=== PATIENT | male | born 2000 | race Caucasian/White ===

== ENCOUNTER 2023-06-28 17:41 | Emergency (ER) | payer BC, SELFPAY ==
--- NOTE | ~2023-06-28 | CT_ITS ---
EXAMINATION: CT HEAD AND FACIAL BONES WITHOUT CONTRAST CLINICAL INFORMATION: Fall head injury COMPARISON: None TECHNIQUE: Contiguous axial imaging was performed from the skull base to vertex without intravenous administration of contrast. This CT examination was performed using dose optimization techniques as appropriate, variously including the following: *Automated exposure control *Adjustment of mA and/or kV according to patient size (this includes techniques or standardized protocols for targeted exams where dose is matched to indication/reason for exam; i.e. extremities or head) *Use of iterative reconstruction technique DLP: 1446 mGy-cm FINDINGS: There is no evidence of acute intracranial hemorrhage or territorial infarction. No abnormal mass effect or midline shift is seen. Yang to white matter differentiation is well preserved. No extra-axial fluid collections are identified. The ventricles are normal in size. There is no abnormal attenuation within the brain parenchyma. Slight soft tissue swelling overlying the right frontal sinus without underlying bony defect. The osseous structures and soft tissues are normal. The mastoid air cells and visualized portions of the paranasal sinuses are well aerated. CT/CT cervical spine wo IV con IMPRESSION: 1. No acute intracranial pathology. 2. No acute visible fracture or dislocation. 3. Slight soft tissue swelling overlying the right frontal sinus without underlying bony defect. EXAMINATION: Noncontrast CT scan of the cervical spine. INDICATION: Neck pain COMPARISON: None. TECHNIQUE: Helical, multidetector axial images were obtained from the occiput to the upper thorax. Coronal and sagittal reformats of the cervical spine were provided for interpretation. DLP: 1446 mGy-cm FINDINGS: No acute fractures or dislocations of the cervical spine are seen. Straightening of normal cervical curvature which may be secondary to patient positioning versus muscle spasm. Anatomic alignment and positioning of the vertebral bodies and posterior elements is noted. The atlantoaxial joint and craniovertebral articulations are normal without evidence of subluxation. There is no prevertebral soft tissue swelling. The thyroid gland and visualized portions of the lung apices and mediastinum are unremarkable. IMPRESSION: 1. No acute visible fracture or dislocation. 2. Straightening of normal cervical curvature which may be secondary to patient positioning versus muscle spasm.
[2023-06-28 17:44] VITALS: BP 138/75; PULSE 88; RESP 16; TEMP 36.9; O2SAT 100; BMI 25.4
--- NOTE | 2023-06-28 17:45 | ED_ITS ---
HPI - General Adult General Chief complaint: Head Injury Stated complaint: Fall, head inj Time Seen by Provider: 06/28/23 20:57 Source: patient Mode of arrival: ambulatory Limitations: no limitations History of Present Illness HPI narrative: Patient is a 22-year-old male who presents emergency department for evaluation after head injury. He reports last night he was walking, when he tripped on the curb, subsequently falling forward and striking his face onto the pavement. His friend who is present at bedside states that there was no loss of consciousness when this happened. He has multiple abrasions to the right side of his face and forehead, last night he had a nosebleed from the right side which has since stopped. He is unaware of the date of his last tetanus vaccination. He denies pain at this time, headache, dizziness, neck pain, chest pain, shortness of breath, nausea, vomiting, numbness or tingling of the extremities. Related Data Allergies Allergy/AdvReac Type Severity Reaction Status Date / Time Unable to Assess Allergy Unverified 06/28/23 17:42 Review of Systems Review of Systems: Yes all other systems are reviewed and are negative [facility] Past Medical History Attestation statement: The following information was validated with the patient. Source: old records reviewed Social History Social History Advance Directives: No Advance Directives Information Provided: No Physical Exam ED Vital Signs: Vital Signs - 24 hr 06/28/23 17:44 Temperature 98.4 F Pulse Rate 88 Respiratory Rate 16 Blood Pressure 138/75 Pulse Oximetry 100 Oxygen Delivery Method Room Air BMI result Body Mass Index 25.4 Appearance: Alert.?Oriented to person, place and time. No acute distress.?Normal affect. Head: Normocephalic atraumatic Eyes: Pupils equal, round and reactive to light.? EOMI. No nystagmus. No raccoon eyes. ENT: Pharynx normal.??TM normal bilaterally. No Hill sign. No septal hematoma. No epistaxis. Neck: Normal inspection.? Neck supple.?? CVS: Heart sounds normal. Normal heart rate and rhythm.? Pulses normal.?? Respiratory: No respiratory distress.? Lung sounds clear to auscultation bilaterally?? Abdomen: Soft and non-tender. Normoactive bowel sounds. Skin: Skin warm and dry.? Normal skin color.? Extremities: No lower extremity edema.? Full AROM to bilateral upper and lower extremities Neuro: Moves all extremities spontaneously. Sensation intact bilaterally. CN II- XII intact. No focal neuro deficits. Ambulates with normal steady gait. Course Course Course Narrative: This is an RME: Additional HPI, ROS, PE not included below will be deferred to primary provider. 22 yo m presents s/p trip and fall and hit his face on the pavement unclear loc this happened last night after fall also had a nose bleed. Reports ttp to forehead and right side of face. Plan- imaging, boostrix Medications Administered Discontinued Medications Generic Name Dose Route Start Last Admin Trade Name Freq PRN Reason Stop Dose Admin Diphtheria/Tetanus/Acell Pertussis 0.5 ml 06/28/23 17:46 06/28/23 20:49 Diphth,Pertus(Acell),Tet Adult 0.5 Ml Syringe IM 06/28/23 17:47 0.5 ml .ONCE ONE Administration Medical Decision Making Medical Decision Making MDM Narrative: Patient is a 22-year-old male presents emergency department for evaluation after a mechanical trip and fall without any precipitating symptomswith head strike and no loss of consciousness occurring yesterday night. I reviewed CT imaging of the head cervical spine and facial bones obtained prior to my assumption of care, there without acute abnormality. No signs of ICH, SDH, fracture, traumatic subluxation. He has no reports of eye pain, vision changes, EOMI, no signs of entrapment. Abrasions are superficial, none of which requiring suture repair. There were cleansed with saline, bacitracin was applied. Tdap was updated today. Discussed with patient return precautions including signs and symptoms of concussion to monitor for. At this time he is stable for discharge. Discussed the use of acetaminophen/ibuprofen as needed for pain, and outpatient follow-up with primary care provider. Differential Diagnosis Differential Diagnoses: The differential diagnosis associated with the presentation includes Independent Interpretation I performed an independent interpretation of an: CT Scan Radiology Impression Discussion of test interpretation with radiology: I have reviewed the radiologist's reading. Radiologist Impression: CT/CT head/brain wo IV con IMPRESSION: 1. No acute intracranial pathology. 2. No acute visible fracture or dislocation. 3. Slight soft tissue swelling overlying the right frontal sinus without underlying bony defect. Independent Historian Clinical information obtained from an independent historian. History obtained from or confirmed by: Friend (Present at bedside who confirms history) Prescription Management I considered prescription management with: Pain Medication (Acetaminophen/ibuprofen) Discharge Plan Discharge Clinical Impression: Acute head injury without loss of consciousness Patient Disposition: Home, Self-Care Instructions: Concussion (ED), Head Injury (ED) Additional Instructions: As discussed, your CT imaging today was normal. You can take ibuprofen 200 mg, 3 tablets (600mg) every 6-8 hours as needed for pain, in addition to Tylenol 500 mg, 2 tablets (1,000mg) every 4-6 hours as needed for pain, but not to exceed 3 doses daily (3,000mg).? Follow-up with your primary care provider as needed. Return back to emergency department any new or worsening symptoms or concerns. Referrals: ED Physician,Generic [Physician] - Interventions: ED Discharge Assessment Last Done: 06/28/23 22:44 Discharge Date/Time: 06/28/23 22:46
[2023-06-28] MEDS: Diphth,Pertus(ACell),Tet Adult 0.5 ML SYRINGE IM (20:49)
== END 2023-06-28 22:46 | disposition home or self-care (01) ==
PROVIDERS: Emergency Provider Internal Medicine
DX: S09.90XA Unspecified injury of head, initial encounter (principal); S00.91XA Abrasion of unspecified part of head, initial encounter; R51.9 Headache, unspecified; M54.2 Cervicalgia; W01.10XA Fall on same level from slipping, tripping and stumbling with subsequent striking against unspecified object, initial encounter; Y93.9 Activity, unspecified; Y92.480 Sidewalk as the place of occurrence of the external cause; Y99.9 Unspecified external cause status
CPT/HCPCS: 70450; 70486; 72125; 90471; 90715; 99283; 99284